=== PATIENT | female | born 1965 | race Caucasian/White ===

== ENCOUNTER 2017-06-09 17:13 | Emergency (ER) | payer OTHER ==
--- NOTE | 2017-06-09 20:13 | NUR ---
PATIENT LEFT WITHOUT BEING TRIAGE OR SEEN BY ERMD
[2017-06-10] MEDS ORDERED: LISI-603 PO (21:27)
== END 2017-06-09 20:14 | disposition left against medical advice (07) ==
LOC: ER 17:19
DX: Z53.21 Procedure and treatment not carried out due to patient leaving prior to being seen by health care provider (principal)

== ENCOUNTER 2017-06-10 21:17 | Emergency (ER) | payer OTHER ==
[~2017-06-10] VITALS: Ht 160 cm; Wt 81.6 kg
[2017-06-10] MEDS ORDERED: LISI-603 PO (21:27)
--- NOTE | 2017-06-10 21:37 | NUR ---
ASSISTING MICK VALDES AT BEDSIDE FOR MSE FEMALE OPTICAL LENS MANUFACTURING TECH.
[2017-06-10] MEDS ORDERED: HYDROCODONE/APAP 10-325 MG TABLET ONE (21:43)
[2017-06-10] MEDS ORDERED: HYDROCODONE/APAP 10-325 MG TABLET PO ONE (21:45)
--- NOTE | 2017-06-10 21:47 | NUR ---
Patient discharged to home in stable conditon. Written and verbal after care instructions given. Patient verbalizes understanding of instructions. Pt ambulated from ER w/ steady gait. No distress noted. Pt took all personal belongings
[2017-06-10 21:49] VITALS: BP 154/95
== END 2017-06-10 21:49 | disposition home or self-care (01) ==
LOC: ER 21:18
DX: N63.0 Unspecified lump in unspecified breast (principal); I10 Essential (primary) hypertension; Z79.899 Other long term (current) drug therapy
CPT/HCPCS: 99283; A4663